=== PATIENT | female | born 1940 | race Caucasian/White ===

== ENCOUNTER 2020-11-12 12:28 | Emergency (ER) | payer MEDICARE, OTHER ==
[~2020-11-12] VITALS: Ht 152.4 cm; Wt 74.8 kg
[2020-11-12] MEDS ORDERED: BACTRIM DS TAB1 EACH PO (14:30)
[2020-11-12] MEDS ORDERED: MECLIZINE HCL12.5 MG PO (14:30)
[2020-11-12] MEDS ORDERED: PREDNISONE20 MG PO (14:30)
[2020-11-12] MEDS ORDERED: CEPHALEXIN500 MG PO (14:30)
== END 2020-11-12 15:02 | disposition home or self-care (01) ==
LOC: ER 13:05
DX: R21 Rash and other nonspecific skin eruption (principal); R42 Dizziness and giddiness; E11.9 Type 2 diabetes mellitus without complications
CPT/HCPCS: 70450; 99283